=== PATIENT | female | born 1970 | race African-American/Black ===

== ENCOUNTER 2023-11-04 13:25 | Emergency (ER) | payer SELFPAY ==
[~2023-11-04] VITALS: Ht 175.3 cm; Wt 75.7 kg
[2023-11-04 13:30] VITALS: O2SAT 99
[2023-11-04] MEDS ORDERED: ACET-2708 MT (15:21)
[2023-11-04 15:30] VITALS: TEMP 98.5
[2023-11-04] MEDS: ACETAMINOPHEN 325MG TABLET PO ONE (15:30)
[2023-11-04 17:41] VITALS: BP 122/78; PULSE 80; RESP 16; O2SAT 99
== END 2023-11-04 17:42 | disposition home or self-care (01) ==
LOC: ER 13:25
DX: M75.31 Calcific tendinitis of right shoulder (principal); I10 Essential (primary) hypertension
CPT/HCPCS: 73030; 99283